=== PATIENT | male | born 1960 | race Two or more races ===

== ENCOUNTER 2016-09-16 09:15 | Emergency (ER) | payer OTHER ==
[~2016-09-16] VITALS: Ht 167.6 cm; Wt 61.3 kg
[~2016-09-16 09:15] MED LIST: AMBIEN10 MG PO; CEPHALEXIN500 MG PO; COLACE100 MG PO; Cipro PO; LORTAB 7.5-5001 EACH PO; MOBIC15 MG PO; MS CONTIN,ORAMO15 M1 PO; NAPROSYN500 MG PO; PERCOCET 10/1 TABLET PO; PERCOCET 5/31 TABLET PO; PRILOSEC40 MG PO; PROTONIX40 MG PO; PROVENTIL,200 INHALA IH; Pulmicort 180 microg IH; ROXICODONE15 MG PO; SYMBICORT60 INHALAT IH; TESSALON200 MG PO; VENTOLIN HFA18 GM IH; VOLTAREN50 MG PO
[2016-09-16 14:24] VITALS: BP 116/52
== END 2016-09-16 14:26 | disposition home or self-care (01) ==
LOC: EME 09:15
PROC: 0H9FXZZ Drainage of Right Hand Skin, External Approach (ICD-10-PCS; principal; 2016-09-16)
DX: L03.011 Cellulitis of right finger (principal)
CPT/HCPCS: 99281; 99284; S0020

== ENCOUNTER 2016-10-15 20:51 | Inpatient (IN) | payer OTHER ==
[~2016-10-15] VITALS: Ht 167.6 cm; Wt 60.2 kg
[2016-10-15 22:33] LABS: BASOPHIL COUNT 0.1 K/uL (0-0.1); EOSINOPHIL (%) 2.4 % (0-5); EOSINOPHIL COUNT 0.3 K/uL (0-0.3); HEMATOCRIT 36.7 % (38.0-50.0); IMMATURE GRANULOCYTE (%) 0.3 % (0.0-0.7); INSTRUMENT ABS NEUTROPHIL CT 8.8 K/uL; MCH 24.9 PG (29.0-34.0); MCHC 32.2 G/DL (30.0-36.0); MCV 77.4 FL (86-99); MEAN PLAT.VOLUME 11.5 uM^3 (9.0-12.4); MONOCYTE (%) 9.8 % (3-12); MONOCYTE COUNT 1.2 K/uL (0-0.8); NEUTROPHIL (%) 70.8 % (45-76); NEUTROPHIL COUNT 8.8 K/uL (1.8-6.4); PLATELET COUNT 153 K/uL (156-360); RBC DIS.WIDTH-CV 15.8 % (11.8-14.6); RBC DIS.WIDTH-SD 43.9 % (39-53); RED BLOOD COUNT 4.74 M/uL (4.00-5.50); WHITE BLOOD COUNT 12.4 K/uL (4.1-10.2)
[2016-10-15 22:49] LABS: CHLORIDE 110 mEq/L (99-109); POTASSIUM 3.7 mEq/L (3.7-5.4); SODIUM 141 mEq/L (136-147)
[2016-10-15 22:51] LABS: GLUCOSE 121 mg/dL (70-99)
[2016-10-15 22:53] LABS: ANION GAP 7 MEQ/L (2-14); TOTAL BILIRUBIN 0.4 mg/dL (0.0-1.0)
[2016-10-15 22:55] LABS: ALKALINE PHOSPHATASE 81 IU/L (3-129); GFR ESTIMATE (CALCULATED) > 59 mL/min/
[2016-10-15 22:56] LABS: UREA NITROGEN (BUN) 13 mg/dL (9-23)
[2016-10-15 23:56] LABS: ADD MIUA? NO; BILIRUBIN NEGATIVE; BLOOD NEGATIVE; COLOR YELLOW ((YELLOW)); GLUCOSE (STRIP) NEGATIVE; KETONES NEGATIVE; LEUKOCYTES NEGATIVE; NITRITE NEGATIVE; PROTEIN (STRIP) NEGATIVE; SPECIFIC GRAVITY 1.018 (1.000-1.030); UCUL ADDED? NO; UROBILINOGEN 0.2 MG/DL (0.2-1.0)
[2016-10-16] MEDS ORDERED: STOOL SOFTENER100 MG PO (00:30)
[2016-10-16] MEDS ORDERED: VENTOLIN HFA18 GM IH (00:30)
[2016-10-16] MEDS ORDERED: SYMBICORT60 INHALAT IH (00:31)
[2016-10-16] MEDS ORDERED: PREPARATION H C51 G1 PR (00:31)
[2016-10-16 02:21] VITALS: BP 138/82
[2016-10-16 07:37] VITALS: BP 120/71
[2016-10-16 11:14] VITALS: BP 111/59
[2016-10-16 16:41] VITALS: BP 95/58
[2016-10-16 19:44] VITALS: BP 101/56
[2016-10-16 23:52] VITALS: BP 101/63
[2016-10-17 07:21] LABS: MCH 25.6 PG (29.0-34.0); MCHC 32.9 G/DL (30.0-36.0); MCV 77.8 FL (86-99); MEAN PLAT.VOLUME 11.3 uM^3 (9.0-12.4); PLATELET COUNT 141 K/uL (156-360); RBC DIS.WIDTH-CV 15.9 % (11.8-14.6); RBC DIS.WIDTH-SD 44.6 % (39-53); RED BLOOD COUNT 4.37 M/uL (4.00-5.50); WHITE BLOOD COUNT 10.8 K/uL (4.1-10.2)
[2016-10-17 07:40] VITALS: BP 113/69
[2016-10-17 10:00] VITALS: BP 116/72
[2016-10-17] MEDS ORDERED: OXYCODONE HCL5 MG PO (13:21)
[2016-10-17] MEDS ORDERED: AMOX TR-K CLV1 EAC4 PO (13:21)
== END 2016-10-17 15:09 | disposition home or self-care (01) | DRG 395 ==
LOC: EME 20:51 → EDOF 10-16 00:36 → ENRESERV 10-16 00:42 → 2EAST 10-16 02:11
PROVIDERS: Emergency Medicine; Surgery
PROC: 0DJD8ZZ Inspection of Lower Intestinal Tract, Via Natural or Artificial Opening Endoscopic (ICD-10-PCS; principal; 2016-10-16)
DX: K61.1 Rectal abscess (principal); K64.4 Residual hemorrhoidal skin tags; K64.8 Other hemorrhoids; K21.9 Gastro-esophageal reflux disease without esophagitis; J45.909 Unspecified asthma, uncomplicated; Z96.643 Presence of artificial hip joint, bilateral
CPT/HCPCS: 72193; 80053; 81003; 83605; 85025; 85027; 87070; 87075; 87076; 87077; 87185; 87186; 87205; 93005; 94640; 94640 76; 99202; 99281; 99285; J0131; J0295; J1100; J1170; J2250; J2270; J2405; J3010; J7030; J7050

== ENCOUNTER → 2016-10-21 | Outpatient (CLI) | payer OTHER ==
[~2016-10-21] MED LIST changes: +AMOX TR-K CLV1 EAC4 PO; +OXYCODONE HCL5 MG PO; +PREPARATION H C51 G1 PR; +STOOL SOFTENER100 MG PO
== END | disposition home or self-care (01) ==
LOC: AMB 13:30
DX: K64.5 Perianal venous thrombosis (principal); K61.1 Rectal abscess; B96.5 Pseudomonas (aeruginosa) (mallei) (pseudomallei) as the cause of diseases classified elsewhere
CPT/HCPCS: 99212

== ENCOUNTER 2016-12-09 21:22 | Inpatient (IN) | payer OTHER ==
[~2016-12-09] VITALS: Ht 167.6 cm; Wt 63.8 kg
[2016-12-09 22:20] LABS: ADD MIUA? NO; BILIRUBIN NEGATIVE; BLOOD NEGATIVE; COLOR YELLOW ((YELLOW)); GLUCOSE (STRIP) NEGATIVE; KETONES NEGATIVE; LEUKOCYTES NEGATIVE; NITRITE NEGATIVE; PROTEIN (STRIP) NEGATIVE; SPECIFIC GRAVITY 1.017 (1.000-1.030); UROBILINOGEN 0.2 MG/DL (0.2-1.0)
[2016-12-09 22:22] LABS: UCUL ADDED? NO
[2016-12-09 22:37] LABS: BASOPHIL COUNT 0.1 K/uL (0-0.1); EOSINOPHIL (%) 1.9 % (0-5); EOSINOPHIL COUNT 0.2 K/uL (0-0.3); HEMATOCRIT 37.1 % (38.0-50.0); IMMATURE GRANULOCYTE (%) 0.3 % (0.0-0.7); INSTRUMENT ABS NEUTROPHIL CT 7.6 K/uL; LYMPHOCYTE COUNT 2.1 K/uL (1.0-2.8); MCHC 32.3 G/DL (30.0-36.0); MCV 77.3 FL (86-99); MEAN PLAT.VOLUME 11.5 uM^3 (9.0-12.4); MONOCYTE (%) 8.9 % (3-12); NEUTROPHIL (%) 69.1 % (45-76); NEUTROPHIL COUNT 7.6 K/uL (1.8-6.4); PLATELET COUNT 146 K/uL (156-360); RBC DIS.WIDTH-CV 16.1 % (11.8-14.6); RBC DIS.WIDTH-SD 44.7 % (39-53)
[2016-12-09 22:41] LABS: CHLORIDE 106 mEq/L (99-109)
[2016-12-09 22:42] LABS: POTASSIUM 3.8 mEq/L (3.7-5.4); SODIUM 140 mEq/L (136-147)
[2016-12-09 22:43] LABS: GLUCOSE 104 mg/dL (70-99)
[2016-12-09 22:45] LABS: ANION GAP 13 MEQ/L (2-14)
[2016-12-09 22:47] LABS: GFR ESTIMATE (CALCULATED) > 59 mL/min/
[2016-12-09 22:48] LABS: UREA NITROGEN (BUN) 12 mg/dL (9-23)
[2016-12-10] MEDS ORDERED: MELOXICAM15 MG PO (01:18)
[2016-12-10 04:07] VITALS: BP 120/79
[2016-12-10 09:43] LABS: INTER. NORMALIZED RATIO 1.1; PROTHROMBIN TIME 12.3 SEC (10.2-12.9)
[2016-12-10 09:46] LABS: PTT 29.1 SEC (25-37)
[2016-12-10 12:01] VITALS: BP 125/71
[2016-12-10 16:23] VITALS: BP 114/61
[2016-12-10 23:50] VITALS: BP 100/56
[2016-12-11 06:29] LABS: MCH 24.5 PG (29.0-34.0); MCHC 31.2 G/DL (30.0-36.0); MCV 78.4 FL (86-99); MEAN PLAT.VOLUME 11.7 uM^3 (9.0-12.4); PLATELET COUNT 121 K/uL (156-360); RBC DIS.WIDTH-CV 16.4 % (11.8-14.6); RBC DIS.WIDTH-SD 46.2 % (39-53); RED BLOOD COUNT 4.21 M/uL (4.00-5.50); WHITE BLOOD COUNT 10.1 K/uL (4.1-10.2)
[2016-12-11 07:42] VITALS: BP 139/86
[2016-12-11 15:46] VITALS: BP 114/58
[2016-12-11 20:07] VITALS: BP 122/76
[2016-12-11 23:18] VITALS: BP 111/66
[2016-12-12 03:18] VITALS: BP 123/75
[2016-12-12 07:34] VITALS: BP 116/71
[2016-12-12 16:57] VITALS: BP 126/85
[2016-12-12 23:46] VITALS: BP 121/83
[2016-12-13 07:05] LABS: BASOPHIL COUNT 0.1 K/uL (0-0.1); EOSINOPHIL (%) 5.5 % (0-5); EOSINOPHIL COUNT 0.3 K/uL (0-0.3); HEMATOCRIT 36.6 % (38.0-50.0); IMMATURE GRANULOCYTE (%) 0.5 % (0.0-0.7); INSTRUMENT ABS NEUTROPHIL CT 3.3 K/uL; MCH 24.9 PG (29.0-34.0); MCHC 32.5 G/DL (30.0-36.0); MCV 76.6 FL (86-99); MONOCYTE COUNT 0.5 K/uL (0-0.8); NEUTROPHIL (%) 52.3 % (45-76); NEUTROPHIL COUNT 3.3 K/uL (1.8-6.4); RBC DIS.WIDTH-CV 15.9 % (11.8-14.6); RBC DIS.WIDTH-SD 43.3 % (39-53); RED BLOOD COUNT 4.78 M/uL (4.00-5.50); WHITE BLOOD COUNT 6.2 K/uL (4.1-10.2)
[2016-12-13 07:18] LABS: ANION GAP 9 MEQ/L (2-14); CHLORIDE 105 MEQ/L (99-109); GFR ESTIMATE (CALCULATED) > 59 mL/min/; GLUCOSE 82 mg/dL (70-99); POTASSIUM 3.9 MEQ/L (3.7-5.4); SAMPLE HEMOLYSIS CHECK 0; SAMPLE ICTERIC CHECK 0; SAMPLE LIPEMIA CHECK 0; SODIUM 141 MEQ/L (136-147); UREA NITROGEN (BUN) 8 mg/dL (9-23)
[2016-12-13 07:26] VITALS: BP 135/75
[2016-12-13 07:42] LABS: HEMATOLOGY COMMENT 1 SMEAR COMPATIBLE; MEAN PLAT.VOLUME 10.9 uM^3 (9.0-12.4); PLAT.SUFFICIENCY ADEQUATE
[2016-12-13 07:43] LABS: PLATELET COUNT 175 K/uL (156-360)
[2016-12-13] MEDS ORDERED: HYDROCODON-ACE1 EAC9 PO (08:06)
[2016-12-13] MEDS ORDERED: DOCUSATE SODIU100 MG PO (08:06)
[2016-12-13] MEDS ORDERED: ZOLPIDEM TARTRAT5 MG PO (08:06)
[2016-12-13 16:59] VITALS: BP 138/80
== END 2016-12-13 18:31 | disposition home or self-care (01) | DRG 395 ==
LOC: EME 21:22 → EDOF 12-10 01:22 → 5EAST 12-10 01:22 → ENRESERV 12-10 01:37 → 5EAST 12-10 03:09
PROVIDERS: Internal Medicine; Radiology Diagnostic Radiology; Surgery
PROC: 0DJD8ZZ Inspection of Lower Intestinal Tract, Via Natural or Artificial Opening Endoscopic (ICD-10-PCS; principal; 2016-12-10)
PROC: 0D9P3ZX Drainage of Rectum, Percutaneous Approach, Diagnostic (ICD-10-PCS; 2016-12-10)
DX: K61.1 Rectal abscess (principal); K64.0 First degree hemorrhoids; D64.9 Anemia, unspecified; K59.09 Other constipation; J44.9 Chronic obstructive pulmonary disease, unspecified; G89.29 Other chronic pain; M54.9 Dorsalgia, unspecified; M19.90 Unspecified osteoarthritis, unspecified site; R30.0 Dysuria; K21.9 Gastro-esophageal reflux disease without esophagitis; Z87.442 Personal history of urinary calculi; Z96.643 Presence of artificial hip joint, bilateral; Z80.0 Family history of malignant neoplasm of digestive organs; Z83.3 Family history of diabetes mellitus
CPT/HCPCS: 74177; 80048; 81003; 83605; 85025; 85027; 85610; 85730; 87040; 87070; 87075; 87076; 87185; 87205; 90686; 94640; 94640 76; 99281; 99285; J0330; J1100; J1170; J1885; J2270; J2310; J2405; J2543; J2710; J3010; J7030; J7050; S0020

== ENCOUNTER 2016-12-18 09:24 | Emergency (ER) | payer OTHER ==
[~2016-12-18] VITALS: Ht 167.6 cm; Wt 60.3 kg
[~2016-12-18 09:24] MED LIST changes: +DOCUSATE SODIU100 MG PO; +HYDROCODON-ACE1 EAC9 PO; +MELOXICAM15 MG PO; +ZOLPIDEM TARTRAT5 MG PO
[2016-12-18 13:03] VITALS: BP 108/73
== END 2016-12-18 13:03 | disposition home or self-care (01) ==
LOC: EME 09:24
DX: T80.89XA Other complications following infusion, transfusion and therapeutic injection, initial encounter (principal); M79.601 Pain in right arm; K61.1 Rectal abscess; J45.909 Unspecified asthma, uncomplicated; K21.9 Gastro-esophageal reflux disease without esophagitis
CPT/HCPCS: 99281; 99284; J2543; J7050

== ENCOUNTER 2017-08-20 17:31 | Emergency (ER) | payer OTHER ==
[~2017-08-20] VITALS: Ht 167.6 cm; Wt 61.2 kg
[2017-08-20] MEDS ORDERED: ROBAXIN750 MG PO (18:54)
[2017-08-20] MEDS ORDERED: MEDROL DOSEPAK4 MG PO (18:54)
[2017-08-20] MEDS ORDERED: ULTRAM50 MG PO (18:54)
[2017-08-20 19:08] VITALS: BP 113/66
== END 2017-08-20 19:10 | disposition home or self-care (01) ==
LOC: EME 17:31
DX: M54.31 Sciatica, right side (principal); Z96.643 Presence of artificial hip joint, bilateral; J45.909 Unspecified asthma, uncomplicated; K21.9 Gastro-esophageal reflux disease without esophagitis; Z87.442 Personal history of urinary calculi
CPT/HCPCS: 73502; 99281; 99283